=== PATIENT | female | born 1965 | race African-American/Black ===

== ENCOUNTER 2017-03-05 16:21 | Emergency (ER) | payer MEDICARE, BC ==
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
[2017-03-05 17:22] LABS: Hematocrit 37.9 % (37.0-47.0); Hemoglobin 12.9 gm/dL (12.5-16.0); Mean Corpuscular Hemoglobin 28.6 pg (27-31); Mean Platelet Volume 8.5 fl (6.0-9.5); Neutrophil # 9.8 K/mm3 (1.3-6.0); Neutrophil % 84.9 % (42-75.0); Platelet Count 306 K/mm3 (150-450); Red Blood Count 4.51 M/mm3 (4.2-5.4); Red Cell Distribution Width 13.5 % (11.5-14.0); White Blood Count 11.5 K/mm3 (4.0-10.5)
[2017-03-05 17:25] LABS: Urine Appearance Clear; Urine Bilirubin Negative (NEGATIVE); Urine Blood Negative /ul (NEGATIVE); Urine Color Yellow; Urine Ketone Negative (NEGATIVE)
[2017-03-05 17:26] LABS: Urine Bacteria None Seen; Urine Nitrite Negative (NEGATIVE); Urine Protein Negative (NEGATIVE); Urine RBC None Seen /hpf (0-5); Urine Urobilinogen Normal (NORMAL); Urine WBC None Seen /hpf (0-5)
[2017-03-05 17:27] LABS: Cocaine Ur Negative (NEGATIVE); Urine Barbiturate Negative (NEGATIVE); Urine Benzodiazepines Negative (NEGATIVE); Urine PCP Negative (NEGATIVE)
[2017-03-05 17:35] LABS: Urine Opiates Negative (NEGATIVE)
[2017-03-05 17:36] LABS: Urine THC Positive (NEGATIVE)
[2017-03-05 17:46] LABS: ALT 19 U/L (19-67); AST 11 U/L (0-48); Albumin * 3.6 gm/dl (3.4-5.0); Alkaline Phosphatase * 84 U/L (50-170); Anion Gap 8.5 mmol/L (6.8-13.8); BUN/Creatinine Ratio 7.1 (9.0-21.6); Bilirubin, Total 0.4 mg/dL (0.0-1.1); Blood Urea Nitrogen 5 mg/dL (3-23); Ca. Corrected For Albumin 9.1 mg/dL (8.4-10.2); Calcium * 9.1 mg/dL (7.9-10.9); Carbon Dioxide 33.3 mmol/L (24-32.6); Chloride 97 mmol/L (97-106); Glucose * 106 mg/dL (70-110); Potassium 2.8 mmol/L (3.4-4.6); Sodium 136 mmol/L (132-142); Total Protein 7.2 gm/dL (6.2-8.2); Troponin I Less than 0.017 ng/ml (0.00-0.10)
[2017-03-05 18:53] VITALS: BP 111/76
[2017-03-05] MEDS ORDERED: KETOROLAC TROMETHAMINE 60 MG/2 ML VIAL IM ONE ×2 (18:56→18:57)
== END 2017-03-05 19:07 | disposition home or self-care (01) ==
LOC: ER 16:21
DX: R09.1 Pleurisy (principal); F32.9 Major depressive disorder, single episode, unspecified; I10 Essential (primary) hypertension; F17.200 Nicotine dependence, unspecified, uncomplicated